=== PATIENT | male | born 1960 | race Caucasian/White ===

== ENCOUNTER 2019-09-30 20:22 | Emergency (ER) | payer MEDICAID ==
[~2019-09-30] VITALS: Ht 170.2 cm; Wt 91.6 kg
[2019-09-30 20:25] VITALS: BP 115/74
--- NOTE | 2019-09-30 20:27 | NUR ---
MOOK JOHNSON AND SENT TO LOBBY. TRIAGE COMPLETE.
--- NOTE | 2019-10-01 01:07 | NUR ---
PT BROUGHT TO [facility] VIA W/C.
--- NOTE | 2019-10-01 01:16 | NUR ---
58 Y/O MALE BIBA C/O BILAT LEG PAIN. 01/06 PAIN, "FEELS LIKE NEEDLES." HAD THIS PROBLEM SINCE 1999'. WORSENING SINCE LAST WEEK. PT FELL LAST WEEK ON THE CEMENT, AND HAS A BUMP ON RIGHT FRONTAL HEAD. EDEMATOUS ON BILAT LEGS, OPEN WOUND AND LEFT LEG. WARM AND TENDER TO TOUCH. CAP REFILL LESS THAN 2 SECONDS. PMHX: UMBILICAL HERNIA ALLERGIES: PORK
[2019-10-01] MEDS ORDERED: KETOROLAC 30 MG/ML VIAL IM ONE (01:25)
[2019-10-01] MEDS ORDERED: HYDROcodone/APAP 5/325 MG 1 TAB TAB PO ONE (01:25)
--- NOTE | 2019-10-01 01:25 | NUR ---
ERMD EVALUATING PT
[2019-10-01 02:11] VITALS: BP 126/64
--- NOTE | 2019-10-01 02:11 | NUR ---
Patient discharged with v/s stable. Written and verbal after care instructions given and explained. Patient alert, oriented and verbalized understanding of instructions. Wheel Chair Assisted with to home. All questions addressed prior to discharge. ID band removed. Patient advised to follow up with PMD. Rx of KEFLEX AND NAPROSYN given. Patient educated on indication of medication including possible reaction and side effects. Opportunity to ask questions provided and answered. Homeless resources provided. Bus pass provided.
== END 2019-10-01 02:11 | disposition home or self-care (01) ==
LOC: MED 20:22
DX: I87.2 Venous insufficiency (chronic) (peripheral) (principal); K42.0 Umbilical hernia with obstruction, without gangrene
CPT/HCPCS: 96372; 99283; J1885